=== PATIENT | male | born 1990 | race American Indian/Alaskan Native ===

== ENCOUNTER 2017-06-01 21:08 | Emergency (ER) | payer BC ==
[2017-06-01 21:29] VITALS: BP 142/84
--- NOTE | 2017-06-01 23:00 | Emergency Department Report ---
ED Laceration [facility] - HPI Chief Complaint: Wound/Laceration Stated Complaint: CUT RT PINKY FINGER Time Seen by Provider: 06/01/17 22:23 Occurred When: Today Location: Upper Extremity Severity: mild Tetanus Status: Not up to Date Laceration Symptoms: Yes Pain (left pinky finger ), No Foreign Body Sensation, No Numbness, No Weakness ED Review of Systems ROS: Stated complaint: CUT RT PINKY FINGER Other details as noted in HPI Constitutional: denies: chills, fever Eyes: denies: eye pain, eye discharge, vision change ENT: denies: ear pain, throat pain Respiratory: denies: cough, shortness of breath, wheezing Cardiovascular: denies: chest pain, palpitations Endocrine: no symptoms reported Gastrointestinal: denies: abdominal pain, nausea, diarrhea Genitourinary: denies: urgency, dysuria Musculoskeletal: denies: back pain, joint swelling, arthralgia Skin: other (laceration left pinky finger ) Neurological: as per HPI Psychiatric: denies: anxiety, depression Hematological/Lymphatic: denies: easy bleeding, easy bruising ED Past Medical Hx - Past Medical History Hx Asthma: Yes Hx HIV: Yes - Surgical History Additional Surgical History: left ACL - Social History Smoking Status: Current Some Day Smoker Substance Use Type: None - Medications Home Medications: Home Medications Medication Instructions Recorded Confirmed Last Taken Type traMADol [Ultram 50 MG tab] 50 mg PO Q6HR PRN #12 tablet 06/01/17 Unknown Rx Laceration Physical Exam - Exam General: Vital signs noted. No distress. Alert and acting appropriately. Laceration Location: Upper Extremity (left pinky finger) Laceration Exam: Yes Normal Distal CMS, No Foreign Body, No Exposed Tendon, Vessel, or Nerve, No Tendon Injury ED Course Vital Signs 06/01/17 21:25 Temperature 98.5 F Pulse Rate 90 Respiratory 20 Rate Blood Pressure 142/84 O2 Sat by Pulse 97 Oximetry - Laceration /Wound Repair Left Dorsal Finger Wound Location: upper extremity Wound Explored: clean Irrigated w/ Saline (ccs): 10 Betadine Prep?: Yes Anesthesia: 1% Lidocaine Volume Anesthetic (ccs): 2 Wound Debrided: minimal Wound Repaired With: sutures Suture Size/Type: 4:0, proline Number of Sutures: 2 Layer Closure?: No Sterile Dressing Applied?: Yes Progress: left pinky laceratino 1 cm closed with prolenes 4.0 x 2 sutures wound cleaned wit betadine solution, anesthes 1% lidocaine, irrigated with ns x 10 cc bleeding controled, pt given wound care instructions , pt verbalized understanding of same pt tolerated procedure with minimal distress ED Medical Decision Making - Medical Decision Making left finger laceration repaired in ed , see procedure note, there is no neuro or muscle involvement rom intact adduction abduction to confrontation, pt will follow up with primary or emergency for suture removal in 7-10 days, pt dc'd to self with tramadol po prn pain. pt verbalized agreement and understanding with discharge plan. Critical care attestation.: If time is entered above; I have spent that time in minutes in the direct care of this critically ill patient, excluding procedure time. ED Disposition Clinical Impression: Laceration of finger of left hand Qualifiers: Encounter type: initial encounter Finger: little finger Damage to nail status: without damage Foreign body presence: without foreign body Qualified Code(s): S61.217A - Laceration without foreign body of left little finger without damage to nail, initial encounter Disposition: DC-01 TO HOME OR SELFCARE Is pt being admited?: No Does the pt Need Aspirin: No Condition: Good Instructions: Suture Care (ED) Prescriptions: traMADol [Ultram 50 MG tab] 50 mg PO Q6HR PRN #12 tablet PRN Reason: Pain Referrals: PRIMARY CARE, [Primary Care Provider] - 3-5 Days Forms: Work/School Release Form(ED) Time of Disposition: 23:07
== END 2017-06-01 23:10 | disposition home or self-care (01) ==
LOC: ED 21:08
DX: S61.217A Laceration without foreign body of left little finger without damage to nail, initial encounter (principal); J45.909 Unspecified asthma, uncomplicated; F17.200 Nicotine dependence, unspecified, uncomplicated; W45.8XXA Other foreign body or object entering through skin, initial encounter; Y93.9 Activity, unspecified; Y92.9 Unspecified place or not applicable; Y99.9 Unspecified external cause status
CPT/HCPCS: 99282

== ENCOUNTER 2017-06-26 13:23 | Emergency (ER) | payer BC ==
[2017-06-26 14:22] VITALS: BP 117/72
--- NOTE | 2017-06-26 14:28 | Emergency Department Report ---
Entered by ERMELINDA CASPER, acting as scribe for MARY CANAS NP. Chief Complaint: Skin Rash Stated Complaint: RASH/CHILLS/FEVER/COUGH Time Seen by Provider: 06/26/17 14:09 - HPI History of Present Illness: 26 y/o male presents with rash to the arms and back that started 2 days ago. Pt notes that he was seen at [facility] yesterday and they told him it was an insect bite and sent him home with some anti-itch cream. Sx include vomiting, chills, itching, fever and cough. - ROS Review of Systems: +rash to arms and back +fever +cough +chills +itching +vomiting - Exam Vital Signs: Vital Signs 06/26/17 14:19 Temperature 98.6 F Pulse Rate 87 Respiratory 16 Rate Blood Pressure 117/72 O2 Sat by Pulse 96 Oximetry Physical Exam: erythematous rash to arms and back nasal congestion noted MSE screening note: Focused history and physical exam performed. Due to findings the following was ordered: [facility] ED Disposition for MSE Condition: Stable This documentation as recorded by the scribTREMAYNE victor RYAN,accurately reflects the service I personally performed and the decisions made by ,MARY CANAS NP.
== END 2017-06-26 20:00 | disposition left against medical advice (07) ==
LOC: ED 13:23
DX: R21 Rash and other nonspecific skin eruption (principal); R05 Cough; Z53.21 Procedure and treatment not carried out due to patient leaving prior to being seen by health care provider